=== PATIENT | female | born 1980 | race Caucasian/White ===

== ENCOUNTER 2016-10-08 12:37 | Emergency (ER) | payer MEDICAID ==
[2016-10-08 13:08] VITALS: BP 114/64
--- NOTE | 2016-10-10 10:33 | ER ---
Date of Service: 10/08/2016 REASON FOR VISIT: Lower abdominal pain and rectal bleeding. HISTORY: This 36-year-old white female presents to the emergency room ambulatory after having noticed some lower abdominal pain starting this afternoon along with 1 episode of bright red blood per rectum. It was noted with her bowel movement, which was kind of soft. This was a single episode. She denies any rectal pain. Denied any melena. Her abdominal pain is suprapubic in location. There is some pain with urination. She has had no fever or chills. Has not been dizzy or lightheaded, She has had a recent umbilical hernia repair. HOME MEDICATIONS: Trazodone at bedtime. ALLERGIES: Zithromax and bee pollen. OBJECTIVE: General: She is alert. She is afebrile. Vital Signs: Pulse is 79, blood pressure is 114/64, respirations are 16, oxygen sats 98%. Heart: Regular rate and rhythm. Lungs: Clear to auscultation. Back: No costovertebral angle tenderness. Abdomen: Soft. There is tenderness in the suprapubic area. There is no rebound. There are no masses, no guarding, no hepatosplenomegaly noted. Rectal: The patient declined a digital rectal exam and declined an anoscope. Risks of declining this with a history of rectal bleeding were noted. LABORATORY DATA: White count 5.3, hemoglobin 13.3. Urinalysis showed specific gravity greater than 1.030, positive protein, 5 to 10 rbc's, 5 and 10 wbc's, and bacteria. ASSESSMENT: 1. Rectal bleeding, by history. Unable to complete assessment, as the patient declined that evaluation. 2. Urinary tract infection. PLAN: 1. Septra DS b.i.d. for 5 days. 2. Plain fluids. 3. Follow up with her primary provider for assessment of the rectal bleeding. Return to the emergency room for any further rectal bleeding. I advised that she will probably need anoscopy and a colonoscopy for further assessment of her rectal bleeding. FM: 10/08/2016 14:12:58 MODL: 10/08/2016 14:36:38 /[id number]
== END 2016-10-08 14:15 | disposition home or self-care (01) ==
LOC: VM.ED 12:37
DX: K62.5 Hemorrhage of anus and rectum (principal); N39.0 Urinary tract infection, site not specified; Z88.8 Allergy status to other drugs, medicaments and biological substances
CPT/HCPCS: 36415; 81001; 85025; 99284

== ENCOUNTER 2016-10-16 19:04 | Emergency (ER) | payer MEDICAID ==
--- NOTE | 2016-10-16 21:01 | EDM.PDOC ---
ED HPI Trauma - General Chief Complaint: Lower Extremity Injury/Pain Stated Complaint: LEFT ANKLE Time Seen by Provider: 10/16/16 19:08 Source: Reports: Patient, Family, RN, RN notes reviewed History Limitations: Reports: No limitations - History of Present Illness INITIAL COMMENTS - FREE TEXT/NARRATIVE: Patient presents to the ED at [facility] concerned about LLE swelling on the lower anterior left combs. She denies any injury or trauma. Patient states the swelling is spontaneous. No other symptoms. Patient is merely concerned about why she has this isolated area of swelling on the left lower leg. Symptom Onset Date: 10/16/16 Occurred When: this morning Allergies/ADRs: Allergies azithromycin [From Zithromax] Allergy (Verified 10/16/16 20:21) Nausea bee pollen Allergy (Verified 10/16/16 20:21) Airway Tightness Home Medications: Ambulatory Orders traZODone 100 mg PO BEDTIME 10/08/16 [Confirmed 10/16/16] Past Medical History Respiratory History: Reports: Asthma - Past Surgical History HEENT Surgical History: Reports: Tonsillectomy GI Surgical History: Reports: Hernia, abdominal Female Surgical History: Reports: section Musculoskeletal Surgical History: Reports: Other (see below) Other Musculoskeletal Surgeries/Procedures:: Spinal fusion Social & Family History - Family History Family Medical History: Noncontributory - Tobacco Use Smoking Status *Q: Current Every Day Smoker Years of Tobacco use: 10 Packs/Tins Daily: 0.5 Used Tobacco, but Quit: Yes Month Tobacco Last Used: November Second Hand Smoke Exposure: No - Alcohol Use Days Per Week of Alcohol Use: 0 - Recreational Drug Use Recreational Drug Use: No Review of Systems - Review of Systems Review Of Systems: See Below Constitutional: Denies: chills, fever, weakness Respiratory: Denies: shortness of breath, cough Cardiovascular: Denies: chest pain, palpitations Musculoskeletal: Reports: leg pain (and swelling of the anterior lower left combs ) Skin: Reports: bruising (anterior left lower combs) Neurological: Reports: no symptoms. Denies: dizziness, headache, numbness, paresthesia, tingling Trauma Exam - Physical Exam Exam: See Below Exam Limited By: No limitations General Appearance: Reports: alert, no apparent distress Head: Reports: atraumatic, normocephalic Respiratory Exam: Reports: no respiratory distress, lungs clear, normal breath sounds Cardiovascular: Reports: normal peripheral pulses, regular rate, rhythm, no edema Extremities: Reports: no evidence of injury, tenderness (isolated area of swelling, anterior left lower combs; small area of bruising; no evidence of infection; skin intact; tender to deep palpation) Neurologic: Reports: alert, oriented x 3 Skin: Reports: Warm/dry, Ecchymosis - [place] Coma Score Best Eye Response ([place]): (4) open spontaneously Best Verbal Response ([place]): (5) oriented Best Motor Response ([place]): (6) obeys commands [place] Total: 15 Course - Orders/Labs/Meds Orders: Active Orders 24 hr Category Date Time Status Lower Extremity wo Cont Lt [CT] Stat Exams 10/16/16 20:19 Taken CBC WITH AUTO DIFF [HEME] Stat Lab 10/16/16 20:47 Received INR,PT,PROTHROMBIN TIME [COAG] Stat Lab 10/16/16 20:47 Received PTT,PARTIAL THROMBOPLSTIN TIME [COAG] Stat Lab 10/16/16 20:47 Received Departure - Departure Time of Disposition: 21:02 Disposition: Home, Self-Care 01 Condition: good Clinical Impression: Swelling of lower limb Instructions: Edema Referrals: PCP,None [Primary Care Provider] - Forms: ED Department Discharge Additional Instructions: 1. Stay well hydrated and rest 2. Elevate your leg to help control the swelling 3. Use JOE wrap to keep the swelling down 4. Recommend finding a primary care provider to help with your medical needs 5. Will call with test results when they are available - Problem List Review Problem List Initiated/Reviewed/Updated: Yes - My Orders Last 24 Hours: My Active Orders 10/16/16 20:19 Lower Extremity wo Cont Lt [CT] Stat 10/16/16 20:47 CBC WITH AUTO DIFF [HEME] Stat INR,PT,PROTHROMBIN TIME [COAG] Stat PTT,PARTIAL THROMBOPLSTIN TIME [COAG] Stat - Assessment/Plan Last 24 Hours: My Active Orders 10/16/16 20:19 Lower Extremity wo Cont Lt [CT] Stat 10/16/16 20:47 CBC WITH AUTO DIFF [HEME] Stat INR,PT,PROTHROMBIN TIME [COAG] Stat PTT,PARTIAL THROMBOPLSTIN TIME [COAG] Stat
[2016-10-16 21:24] VITALS: BP 110/61
== END 2016-10-16 21:15 | disposition home or self-care (01) ==
LOC: VM.ED 19:04
DX: M79.89 Other specified soft tissue disorders (principal); J45.909 Unspecified asthma, uncomplicated; F17.210 Nicotine dependence, cigarettes, uncomplicated; Z88.1 Allergy status to other antibiotic agents; Z91.030 Bee allergy status; Z98.890 Other specified postprocedural states; Z98.1 Arthrodesis status
CPT/HCPCS: 36415; 73700; 85025; 85610; 85730; 99284

== ENCOUNTER 2017-02-05 14:32 | Emergency (ER) | payer MEDICAID ==
[2017-02-05] MEDS ORDERED: Take Home: Albuterol 6.7 GM Inhaler, 1 Inhaler Pack INH ONE (15:13)
--- NOTE | 2017-02-05 15:13 | EDM.PDOC ---
ED HPI GENERAL MEDICAL PROBLEM - General Chief Complaint: Respiratory Problem Stated Complaint: COLD/HEADACHE Time Seen by Provider: 02/05/17 15:05 Source of Information: Reports: Patient, Old Records History Limitations: Reports: No Limitations - History of Present Illness INITIAL COMMENTS - FREE TEXT/NARRATIVE: Patient has had headache and nasal congestion for two days. Greenish nasal discharge and frontal headache. No fever or chills. Has history of asthma but has no albuterol inhaler. Has a lot of PND and coughing last few days. Has been on amoxicillin for a few days for dental infection. Onset: Gradual Onset Date: 02/03/17 Onset Time: 08:00 Duration: Day(s):, Getting Worse Location: Reports: Head, Face, Chest Severity: Moderate Improves with: Reports: None Worsens with: Reports: None Associated Symptoms: Reports: No Other Symptoms Treatments SERVER PROGRAMMER: Reports: Other (see below) (none) - Related Data Allergies Allergy/AdvReac Type Severity Reaction Status Date / Time azithromycin [From Zithromax] Allergy Nausea Verified 10/16/16 20:21 bee pollen Allergy Airway Verified 10/16/16 20:21 Tightness Home Meds: Home Meds traZODone 100 mg PO BEDTIME 10/08/16 [History] Past Medical History Respiratory History: Reports: Asthma - Past Surgical History GI Surgical History: Reports: Hernia, Abdominal Female Surgical History: Reports: Section Musculoskeletal Surgical History: Reports: Other (See Below) Social & Family History - Family History Family Medical History: Noncontributory - Tobacco Use Smoking Status *Q: Current Every Day Smoker Years of Tobacco use: 10 Packs/Tins Daily: 0.5 Used Tobacco, but Quit: Yes Month Tobacco Last Used: November Second Hand Smoke Exposure: No - Alcohol Use Days Per Week of Alcohol Use: 0 - Recreational Drug Use Recreational Drug Use: No ED ROS GENERAL - Review of Systems Review Of Systems: See Below Constitutional: Reports: No Symptoms. Denies: Fever, Chills HEENT: Reports: Eye Pain, Nose Pain, Sinus Problem, Throat Pain. Denies: Ear Discharge, Ear Pain, Vision Change Respiratory: Reports: Wheezing, Cough. Denies: Shortness of Breath, Sputum Cardiovascular: Reports: No Symptoms. Denies: Chest Pain, Dyspnea on Exertion Endocrine: Reports: No Symptoms GI/Abdominal: Reports: No Symptoms. Denies: Abdominal Pain, Anorexia, Nausea, Vomiting : Reports: No Symptoms Musculoskeletal: Reports: No Symptoms Skin: Reports: No Symptoms Neurological: Reports: No Symptoms Psychiatric: Reports: No Symptoms Hematologic/Lymphatic: Reports: No Symptoms Immunologic: Reports: No Symptoms ED EXAM, GENERAL - Physical Exam Exam: See Below Exam Limited By: No Limitations General Appearance: Alert, WD/WN, No Apparent Distress Eye Exam: Bilateral Eye: EOMI, PERRL Ears: Normal External Exam, Normal Canal, Hearing Grossly Normal, Normal TMs Nose: Nasal Swelling, Clear Rhinorrhea, Other (reddened boggy nasal mucosa) Throat/Mouth: Normal Inspection, Normal Lips, Normal Voice, No Airway Compromise , Other (posterior oropharynx erythematous) Head: Atraumatic, Normocephalic, Sinus Tenderness. No: Facial Swelling, Facial Tenderness Neck: Normal Inspection, Supple, Non-Tender, Full Range of Motion. No: Lymphadenopathy (L), Lymphadenopathy (R) Respiratory/Chest: Lungs Clear, Decreased Breath Sounds, Prolonged Expiration. No: No Respiratory Distress, No Accessory Muscle Use, Chest Non-Tender, Crackles , Rales, Rhonchi, Wheezing Cardiovascular: Normal Peripheral Pulses, Regular Rate, Rhythm, No Edema, No JVD , No Murmur, No Rub GI/Abdominal: Normal Bowel Sounds, Soft, Non-Tender (Female) Exam: Deferred Rectal (Female) Exam: Deferred Back Exam: Normal Inspection, Full Range of Motion Extremities: Normal Inspection, Normal Range of Motion Neurological: Alert, Oriented, CN II-XII Intact, Normal Cognition Psychiatric: Normal Affect, Normal Mood Skin Exam: Warm, Dry, Intact, Normal Color Lymphatic: No Adenopathy Course - Orders/Labs/Meds Meds: Medications Discontinued Medications Generic Name Dose Route Start Last Admin Trade Name Freq PRN Reason Stop Dose Admin Albuterol 1 packet 02/05/17 15:13 Take Home: Albuterol 6.7 Gm, 1 Inh Pack INH 02/05/17 15:14 ONETIME ONE - Re-Assessments/Exams Free Text/Narrative Re-Assessment/Exam: 02/05/17 15:31 Patient evaluated and diagnosed with sinusitis and bronchitis. She has history of RAD so will give an albuterol inhaler to use as directed. She is advised this is likely viral in origin. She is advised on symptomatic treatment and advised to find a PCP. She is to get rechecked if symptoms worsen or fail to improve. She is to stay on the amoxicillin she is already on for dental infection. Patient verbalized understanding of discharge instructions. Departure - Departure Time of Disposition: 15:34 Disposition: Home, Self-Care 01 Condition: Good Clinical Impression: Sinusitis, acute, Acute bronchitis - Discharge Information Instructions: Upper Respiratory Infection, Adult, [id number] Forms: ED Department Discharge Additional Instructions: Complete the amoxicillin antibiotic you are already on. Use the inhaler of albuterol 2 puffs every 4 hours as needed for cough, wheeze or shortness of breath. Follow up with your primary care provider if symptoms worsen or fail to improve. Get some over the counter Robitussin cough syrup or mucinex and use as directed for cough.
[2017-02-05 17:30] VITALS: BP 104/63
== END 2017-02-05 15:30 | disposition home or self-care (01) ==
LOC: VM.ED 14:32
DX: J01.90 Acute sinusitis, unspecified (principal); J20.9 Acute bronchitis, unspecified; J45.909 Unspecified asthma, uncomplicated; F17.210 Nicotine dependence, cigarettes, uncomplicated; Z88.1 Allergy status to other antibiotic agents; Z91.018 Allergy to other foods; Z98.890 Other specified postprocedural states
CPT/HCPCS: 99283; A9270

== ENCOUNTER 2017-03-14 20:12 | Emergency (ER) | payer MEDICAID ==
[2017-03-14] MEDS ORDERED: diphenhydrAMINE 25 MG Cap PO ONE (20:21)
[2017-03-14 20:51] VITALS: BP 115/59
--- NOTE | 2017-03-15 08:31 | ER ---
Date of Service: 03/14/2017 SUBJECTIVE: Lora presents to the emergency room with complaints of an insect bite. The patient states that she is highly allergic to bee stings and sustained a bee sting to the right lateral aspect of her ankle. She states this happened approximately 15 minutes before coming to the emergency room. The patient states that she does not have an EpiPen and is requesting oral Benadryl, stating that she does not want any IV started and refuses any injections. PAST MEDICAL HISTORY: 1. Tobacco abuse. 2. Asthma. 3. History of ventral hernia. 4. History of methamphetamine use with recent incarceration for this. MEDICATIONS: None. ALLERGIES: To azithromycin and bee pollen. REVIEW OF SYSTEMS: General: No fever or chills. HEENT: No sore throat, rhinorrhea, or congestion. Denies any throat tightness. Respiratory: No shortness of breath. Cardiac: Denies any substernal chest pain. No jaw, arm, neck, or back pain. GI: No nausea, vomiting, or diarrhea. No melena, hematochezia, or hematemesis. PHYSICAL EXAMINATION: General: This is a 36-year-old female patient, in no acute distress. Vital Signs: Blood pressure is 115/59, temperature is 36.8, respiratory rate is 18, O2 saturations 95%. Skin: Warm, pink, and dry. HEENT: Mouth, oral mucosa is moist. Lungs: Clear to auscultation. Musculoskeletal: No obvious area of erythema or evidence of bee sting to the patient's ankle. No urticaria or other outward signs of insect bites noted. Remainder of her physical examination is within normal limits. EMERGENCY ROOM COURSE: The patient was given 50 mg of Benadryl p.o. She remained stable in my care in the emergency room. ASSESSMENT: Possible bee sting. PLAN: The patient will be discharged. Return to the emergency room if she develops any shortness of breath, throat tightness, or other worrisome signs or symptoms. She was given a prescription for an epinephrine autoinjector since she states that she does have a history of severe allergy to bee stings. All questions were answered. ABHAYK: 03/15/2017 06:57:23 MODL: 03/15/2017 08:27:14 /[id number]
== END 2017-03-14 20:41 | disposition home or self-care (01) ==
LOC: VM.ED 20:12
DX: Z03.89 Encounter for observation for other suspected diseases and conditions ruled out (principal); J45.909 Unspecified asthma, uncomplicated
CPT/HCPCS: 99283; A9270

== ENCOUNTER 2021-02-12 10:26 | Emergency (ER) | payer MEDICAID ==
[2021-02-12] MEDS ORDERED: hydrOXYzine HCl 25 MG Tab PO ONE (10:34)
--- NOTE | 2021-02-12 10:37 | EDM.PDOC ---
ED HPI GENERAL MEDICAL PROBLEM - General Stated Complaint: ER Time Seen by Provider: 02/12/21 10:29 Source of Information: Reports: Patient, EMS - History of Present Illness INITIAL COMMENTS - FREE TEXT/NARRATIVE: Lora is a 40 y/o female who is brought to the ER by EMS for panic/anxiety type symptoms. She recently moved here to [place] from [place] and was walking to the Police Station to register as a sex offender since she had moved. She has a history of Panic/Anxiety and she has previously been on Prozac and also had prn Hydroxyzine. She has not needed the prn med in a long time and could not locate her prescription with the recent move and when she was at the station she got very anxious and started crying and complaining of chest discomfort. Staff at the police station called 911 and she was brought here. Back Pain Score (Numeric/FACES): 3 - Related Data Allergies Allergy/AdvReac Type Severity Reaction Status Date / Time azithromycin [From Zithromax] Allergy Nausea Verified 02/12/21 11:00 bee pollen Allergy Airway Verified 02/12/21 11:00 Tightness Home Meds: Home Meds hydrOXYzine HCL [Atarax] 25 mg PO QID PRN #30 tab 02/12/21 [Rx] Past Medical History Respiratory History: Reports: Asthma Psychiatric History: Reports: Depression, Other (See Below) Other Psychiatric History: cutting - Past Surgical History HEENT Surgical History: Reports: Tonsillectomy GI Surgical History: Reports: Hernia, Abdominal Female Surgical History: Reports: Section Social & Family History - Family History Family Medical History: No Pertinent Family History - Caffeine Use Caffeine Use: Reports: None Review of Systems - Review of Systems Review Of Systems: See Below Constitutional: Reports: No Symptoms Eyes: Reports: No Symptoms Ears: Reports: No Symptoms Nose: Reports: No Symptoms Mouth/Throat: Reports: No Symptoms Respiratory: Reports: No Symptoms Cardiovascular: Reports: No Symptoms GI/Abdominal: Reports: No Symptoms Genitourinary: Reports: No Symptoms Musculoskeletal: Reports: No Symptoms Skin: Reports: No Symptoms Neurological: Reports: No Symptoms Psychiatric: Reports: Anxiety ED EXAM, GENERAL - Physical Exam Exam: See Below Exam Limited By: No Limitations General Appearance: Alert, WD/WN, No Apparent Distress (female adult, slightly anxious and crying but cooperative) Eye Exam: Bilateral Eye: PERRL Ears: Hearing Grossly Normal Nose: Normal Inspection, Normal Mucosa Throat/Mouth: Normal Inspection, Normal Lips, Normal Voice Head: Atraumatic, Normocephalic Neck: Normal Inspection, Supple, Non-Tender Respiratory/Chest: No Respiratory Distress, Lungs Clear, Chest Non-Tender Cardiovascular: Normal Peripheral Pulses, Regular Rate, Rhythm, No Murmur GI/Abdominal: Normal Bowel Sounds, Soft (Female) Exam: Deferred Rectal (Female) Exam: Deferred Back Exam: Normal Inspection Extremities: Normal Inspection, Normal Range of Motion, Normal Capillary Refill Neurological: Alert, Oriented, CN II-XII Intact Psychiatric: Anxious, Tearful Skin Exam: Warm, Dry, Intact, Normal Color Course - Vital Signs Text/Narrative:: 1029 The patient was seen by the HISTOLOGY SPECIALIST. She was given Hydroxyzine 25mg po x 1. 1125 Anxiety better and she was more relaxed. Will give her an Rx for prn hydroxyzine until she can establish care with a local PCP. She was given discharge instructions and left the ER in stable condition. Last Recorded V/S: Last Vital Signs Temp 36.6 C 02/12/21 10:40 Pulse 77 02/12/21 10:40 Resp 16 02/12/21 10:40 BP 102/42 L 02/12/21 10:40 Pulse Ox 99 02/12/21 10:40 - Orders/Labs/Meds Meds: Medications Discontinued Medications Generic Name Dose Route Start Last Admin Trade Name Freq PRN Reason Stop Dose Admin Hydroxyzine HCl 25 mg 02/12/21 10:34 02/12/21 10:44 Hydroxyzine Hcl 25 Mg Tab PO 02/12/21 10:35 25 mg ONETIME ONE Administration Departure - Departure Time of Disposition: 11:27 Disposition: Home, Self-Care 01 Condition: Good Clinical Impression: Anxiety attack - Discharge Information *PRESCRIPTION DRUG MONITORING PROGRAM REVIEWED*: Not Applicable *COPY OF PRESCRIPTION DRUG MONITORING REPORT IN PATIENT LAURA: Not Applicable Prescriptions: hydrOXYzine HCL [Atarax] 25 mg PO QID PRN #30 tab PRN Reason: Anxiety Instructions: Panic Attack, [id number], Managing Anxiety, Adult Additional Instructions: -Hydroxyzine 25mg oral every 6 hours as needed #30(Rx) -Follow up with your Primary Provider for further concerns and additional med refills -Return to the ER as needed Sepsis Event Note (ED) - Focused Exam Vital Signs: Vital Signs Temp Pulse Resp BP Pulse Ox 02/12/21 10:40 36.6 C 77 16 102/42 L 99 - Assessment/Plan Assessment:: 1)Anxiety Attack Plan: -As above
[2021-02-12 11:08] VITALS: BP 102/42; PULSE 77
== END 2021-02-12 11:35 | disposition home or self-care (01) ==
LOC: VM.ED 10:26
DX: F41.9 Anxiety disorder, unspecified (principal); J45.909 Unspecified asthma, uncomplicated; Z88.1 Allergy status to other antibiotic agents; Z91.030 Bee allergy status
CPT/HCPCS: 99283; A9270

== ENCOUNTER 2021-05-16 19:11 | Emergency (ER) | payer MEDICAID ==
--- NOTE | 2021-05-16 19:43 | EDM.PDOC ---
ED HPI GENERAL MEDICAL PROBLEM - General Chief Complaint: Skin Complaint Stated Complaint: rash Time Seen by Provider: 05/16/21 19:12 Source of Information: Reports: Patient History Limitations: Reports: No Limitations - History of Present Illness INITIAL COMMENTS - FREE TEXT/NARRATIVE: Emergency department with complaints of a rash on her right rib area. She states that this rash began approximately 30 minutes prior to arrival to the emergency department. She is unsure if it is of hives or other type of rash. She showed her mother and her mother advised to come to the emergency department to have it checked out. Patient states it is itching sensation however it is not spreading. Patient states that her apartment is not the cleanest at times. And states that there sometimes are spiders in her apartment. She is not aware of any bedbugs or fleas in her apartment. Onset: Sudden Location: Reports: Abdomen Quality: Reports: Other Severity: Mild Improves with: Reports: None Worsens with: Reports: None Context: Reports: Other Associated Symptoms: Reports: No Other Symptoms - Related Data Allergies Allergy/AdvReac Type Severity Reaction Status Date / Time azithromycin [From Zithromax] Allergy Nausea Verified 02/12/21 11:00 bee pollen Allergy Airway Verified 02/12/21 11:00 Tightness Home Meds: Home Meds hydrOXYzine HCL [Atarax] 25 mg PO QID PRN #30 tab 02/12/21 [Rx] Past Medical History Respiratory History: Reports: Asthma Psychiatric History: Reports: Anxiety, Depression, Panic Attack, Other (See Below) Other Psychiatric History: cutting - Past Surgical History HEENT Surgical History: Reports: Tonsillectomy Other HEENT Surgeries/Procedures: teeth extraction GI Surgical History: Reports: Hernia, Abdominal Female Surgical History: Reports: Section Musculoskeletal Surgical History: Reports: Other (See Below) Other Musculoskeletal Surgeries/Procedures:: corrective spine surgery Social & Family History - Family History Family Medical History: No Pertinent Family History - Caffeine Use Caffeine Use: Reports: None ED ROS GENERAL - Review of Systems Review Of Systems: Comprehensive ROS is negative, except as noted in HPI. Constitutional: Reports: No Symptoms HEENT: Reports: No Symptoms Respiratory: Reports: No Symptoms Cardiovascular: Reports: No Symptoms Endocrine: Reports: No Symptoms GI/Abdominal: Reports: No Symptoms : Reports: No Symptoms Musculoskeletal: Reports: No Symptoms Neurological: Reports: No Symptoms Psychiatric: Reports: No Symptoms Hematologic/Lymphatic: Reports: No Symptoms Immunologic: Reports: No Symptoms ED EXAM, GENERAL - Physical Exam Exam: See Below Exam Limited By: No Limitations General Appearance: Alert, WD/WN, No Apparent Distress Head: Atraumatic, Normocephalic Neck: Normal Inspection, Supple, Non-Tender, Full Range of Motion Respiratory/Chest: No Respiratory Distress, Lungs Clear, Normal Breath Sounds, Chest Non-Tender Cardiovascular: Normal Peripheral Pulses, Regular Rate, Rhythm, No Edema GI/Abdominal: Normal Bowel Sounds, Soft, Non-Tender Back Exam: Normal Inspection, Full Range of Motion Extremities: Normal Inspection, Normal Range of Motion, Normal Capillary Refill Neurological: Alert, Oriented, Normal Gait Psychiatric: Normal Affect, Normal Mood Skin Exam: Rash (right upper abd- spider bite appearance. with mild redness around the site. non weaping ) Departure - Departure Time of Disposition: 19:40 Disposition: Home, Self-Care 01 Condition: Good Clinical Impression: Spider bite Qualifiers: Encounter type: initial encounter Injury intent: accidental or unintentional Qualified Code(s): T63.301A - Toxic effect of unspecified spider venom, accidental (unintentional), initial encounter - Discharge Information *PRESCRIPTION DRUG MONITORING PROGRAM REVIEWED*: Not Applicable *COPY OF PRESCRIPTION DRUG MONITORING REPORT IN PATIENT LAURA: Not Applicable Instructions: Spider Bite Referrals: PCP,None [Primary Care Provider] - Forms: ED Department Discharge Additional Instructions: 1. Rest 2. Keep the area clean and dry 3. Can use tylenol and ibuprofen as needed for pain and discomfort 4. Diet as tolerated 5. Activity as tolerated 6. Can put a bandaid over the area as needed to help with irritation 7. Can use ice 3-4 times a day at 20-minute intervals to help with any swelling and discomfort 8. Follow-up with your primary care provider symptoms continue or to progress 9. Discharge information has been provided regarding your injury and wound care has been provided 10. Avoid an public pools or hot tubes until wound is healed. - Assessment/Plan Assessment:: 1. spider bite Plan: 1. Bacitracin cream and bandaid applied to the area 2. Patient and nursing staff was updated regarding the plan of care 3. Education provided the patient regarding activity, diet, rest, [id number] medication modalities, and follow-up care was provided 4. Patient and family are agreeable to the above plan of care 5. All questions and concerns were addressed with the patient and family prior to discharge
== END 2021-05-16 19:55 | disposition home or self-care (01) ==
LOC: VM.ED 19:11
DX: T63.301A Toxic effect of unspecified spider venom, accidental (unintentional), initial encounter (principal); Z88.1 Allergy status to other antibiotic agents; Z91.030 Bee allergy status
CPT/HCPCS: 99282; 99283

== ENCOUNTER 2021-06-26 21:12 | Emergency (ER) | payer MEDICAID ==
[2021-06-26] MEDS ORDERED: Take Home: Amoxicillin/Clavulanate K 875-125 MG Tab, 2 Tab Pack PO ONE (22:01)
[2021-06-26] MEDS ORDERED: Benzonatate 100 MG Cap ONE (22:26)
[2021-06-26] MEDS: Benzonatate 100 MG Cap PO SCH ×2 (22:27→22:28)
--- NOTE | 2021-06-27 00:45 | EDM.PDOC ---
ED HPI GENERAL MEDICAL PROBLEM - General Chief Complaint: ENT Problem Stated Complaint: EAR PAIN Time Seen by Provider: 06/26/21 21:45 Source of Information: Reports: Patient History Limitations: Reports: No Limitations - History of Present Illness INITIAL COMMENTS - FREE TEXT/NARRATIVE: Pt. presents to ER with complaints of pain to the antihelix. She states that the symptoms started today. She noticed some redness and a small area of swelling to the area. Denies any history of MRSA or other resistive bacteria colonization on her person. Pt. also complains of cough, sinus congestion, sore throat for the past 3 days. Denies any fever. No chest pain or shortness of breath. Onset Date: 06/27/21 Right Ear Pain Score (Numeric/FACES): 9 - Related Data Allergies Allergy/AdvReac Type Severity Reaction Status Date / Time azithromycin [From Zithromax] Allergy Nausea Verified 02/12/21 11:00 bee pollen Allergy Airway Verified 02/12/21 11:00 Tightness Home Meds: Home Meds hydrOXYzine HCL [Atarax] 25 mg PO QID PRN #30 tab 02/12/21 [Rx] Past Medical History Respiratory History: Reports: Asthma Psychiatric History: Reports: Anxiety, Depression, Panic Attack, Other (See Below) Other Psychiatric History: cutting - Past Surgical History HEENT Surgical History: Reports: Tonsillectomy Other HEENT Surgeries/Procedures: teeth extraction GI Surgical History: Reports: Hernia, Abdominal Female Surgical History: Reports: Section Musculoskeletal Surgical History: Reports: Other (See Below) Other Musculoskeletal Surgeries/Procedures:: corrective spine surgery Social & Family History - Family History Family Medical History: No Pertinent Family History - Tobacco Use Tobacco Use Status *Q: Current Every Day Tobacco User Years of Tobacco use: 10 Packs/Tins Daily: 0.2 - Caffeine Use Caffeine Use: Reports: None - Recreational Drug Use Recreational Drug Use: No ED ROS GENERAL - Review of Systems Review Of Systems: See Below Constitutional: Reports: No Symptoms HEENT: Reports: Ear Pain, Rhinitis, Sinus Problem, Throat Pain, Throat Swelling Respiratory: Reports: No Symptoms Cardiovascular: Reports: No Symptoms Endocrine: Reports: No Symptoms GI/Abdominal: Reports: No Symptoms : Reports: No Symptoms Musculoskeletal: Reports: No Symptoms Skin: Reports: No Symptoms Neurological: Reports: No Symptoms Psychiatric: Reports: No Symptoms Hematologic/Lymphatic: Reports: No Symptoms Immunologic: Reports: No Symptoms ED EXAM, GENERAL - Physical Exam Exam: See Below Exam Limited By: No Limitations General Appearance: Alert, WD/WN, No Apparent Distress Eye Exam: Bilateral Eye: EOMI Ears: Other (small area of erythema with very small abscess/pustule to antehelix of L ear. TMs are clear.) Nose: Normal Inspection, Normal Mucosa, No Blood Throat/Mouth: Normal Inspection, Normal Lips, Normal Teeth, Normal Gums, Normal Oropharynx, Normal Voice, No Airway Compromise Head: Atraumatic, Normocephalic Neck: Normal Inspection, Supple, Non-Tender, Full Range of Motion Respiratory/Chest: No Respiratory Distress, Lungs Clear, Normal Breath Sounds, No Accessory Muscle Use, Chest Non-Tender Cardiovascular: Normal Peripheral Pulses, Regular Rate, Rhythm, No JVD Course - Vital Signs Last Recorded V/S: Last Vital Signs Temp 36.6 C 06/26/21 21:45 Pulse Resp BP Pulse Ox - Orders/Labs/Meds Meds: Medications Discontinued Medications Generic Name Dose Route Start Last Admin Trade Name Lulu PRN Reason Stop Dose Admin Amoxicillin/Clavulanate Potassium 2 packet 06/26/21 22:01 06/26/21 22:21 Take Home: Amoxicillin/Clavulanate K 875-125 Mg Tab, 2 Tab Pack PO 06/26/21 22:02 2 packet ONETIME ONE Administration Benzonatate 100 mg 06/27/21 08:00 06/26/21 22:28 Benzonatate 100 Mg Cap PO 100 mg TID MANSI Administration Benzonatate Confirm 06/26/21 22:26 Benzonatate 100 Mg Cap Administered 06/26/21 22:27 Dose 300 mg .ROUTE .STK-MED ONE Departure - Departure Time of Disposition: 23:00 Disposition: Home, Self-Care 01 Clinical Impression: Cellulitis, Viral illness - Discharge Information Instructions: Amoxicillin; Clavulanic Acid Tablets, Cellulitis, Adult, Viral Illness, Adult, Benzonatate capsules, Probiotics Referrals: PCP,None [Primary Care Provider] - Forms: ED Department Discharge Additional Instructions: Augmentin 875mg 1 twice daily for 10 days Tessalon 100mg 1 three times daily for cough Recheck in clinic in 7-10 days, sooner if not gradually improving. Sepsis Event Note (ED) - Evaluation Sepsis Screening Result: No Definite Risk - Focused Exam Vital Signs: Vital Signs Temp 06/26/21 21:45 36.6 C - Problem List Review Problem List Initiated/Reviewed/Updated: Yes - Assessment/Plan Plan: Augmentin 875mg 1 twice daily for 10 days Tessalon 100mg 1 three times daily for cough Recheck in clinic in 7-10 days, sooner if not gradually improving.
== END 2021-06-26 22:33 | disposition home or self-care (01) ==
LOC: VM.ED 21:12
DX: H60.12 Cellulitis of left external ear (principal); B34.9 Viral infection, unspecified; H60.02 Abscess of left external ear; Z91.030 Bee allergy status; Z88.1 Allergy status to other antibiotic agents; Z72.0 Tobacco use
CPT/HCPCS: 99282; A9270-GY

== ENCOUNTER 2021-09-22 01:05 | Emergency (ER) | payer MEDICAID ==
[2021-09-22 01:49] VITALS: BP 117/67; PULSE 82
== END 2021-09-22 01:30 | disposition home or self-care (01) ==
LOC: VM.ED 01:05
DX: F41.9 Anxiety disorder, unspecified (principal); Z88.1 Allergy status to other antibiotic agents; Z91.030 Bee allergy status
CPT/HCPCS: 99283

== ENCOUNTER 2021-11-04 15:12 | Emergency (ER) | payer MEDICAID ==
[2021-11-04 15:24] VITALS: BP 115/65; PULSE 88
[2021-11-04 16:19] LABS: CHLORIDE,CL 107 mmol/L (98-107); SODIUM,NA 140 mmol/L (136-145)
[2021-11-04 16:21] LABS: ANION GAP 12.8 mmol/L (5-15)
[2021-11-04] MEDS ORDERED: Ciprofloxacin 500 MG Tab PO ONE (17:21)
== END 2021-11-04 17:27 | disposition home or self-care (01) ==
LOC: VM.ED 15:12
DX: N39.0 Urinary tract infection, site not specified (principal); R31.9 Hematuria, unspecified; Z88.1 Allergy status to other antibiotic agents; Z91.030 Bee allergy status; Z72.0 Tobacco use
CPT/HCPCS: 36415; 74176; 80053; 81001; 85025; 99283; 99284-25; A9270-GY

== ENCOUNTER 2021-12-28 03:46 | Emergency (ER) | payer MEDICAID ==
[2021-12-28] MEDS ORDERED: Ketorolac 10 MG Tab PO ONE (03:54)
[2021-12-28] MEDS ORDERED: SUMAtriptan 50 MG Tab PO ONE (03:54)
[2021-12-28 04:26] VITALS: BP 103/63; PULSE 89
== END 2021-12-28 04:20 | disposition home or self-care (01) ==
LOC: VM.ED 03:46
DX: G43.909 Migraine, unspecified, not intractable, without status migrainosus (principal); Z79.899 Other long term (current) drug therapy; Z88.1 Allergy status to other antibiotic agents; Z91.030 Bee allergy status
CPT/HCPCS: 99283; 99284; A9270-GY

== ENCOUNTER 2022-03-04 02:17 | Emergency (ER) | payer MEDICAID ==
[2022-03-04] MEDS: Take Home: Naproxen 500 MG Tab, 4 Tab Pack PO ONE (02:37)
[2022-03-04 04:15] VITALS: BP 122/49; PULSE 85
== END 2022-03-04 02:42 | disposition home or self-care (01) ==
LOC: VM.ED 02:17
DX: M54.50 Low back pain, unspecified (principal); Z88.1 Allergy status to other antibiotic agents; Z91.030 Bee allergy status; Z79.899 Other long term (current) drug therapy
CPT/HCPCS: 99283; A9270-GY

== ENCOUNTER 2022-06-12 16:26 | Emergency (ER) | payer MEDICAID ==
[2022-06-12 17:00] VITALS: BP 106/44; PULSE 81
[2022-06-12] MEDS ORDERED: Take Home: Amoxicillin/Clavulanate K 875-125 MG Tab, 2 Tab Pack PO ONE (17:00)
== END 2022-06-12 17:15 | disposition home or self-care (01) ==
LOC: VM.ED 16:26
DX: H66.93 Otitis media, unspecified, bilateral (principal); F17.210 Nicotine dependence, cigarettes, uncomplicated; Z88.1 Allergy status to other antibiotic agents; Z91.030 Bee allergy status; Z79.899 Other long term (current) drug therapy
CPT/HCPCS: 99282; A9270

== ENCOUNTER 2022-06-19 17:37 | Emergency (ER) | payer MEDICAID ==
[2022-06-19 18:17] LABS: ANION GAP 13.8 mmol/L (5-15)
[2022-06-19 18:42] VITALS: BP 112/65; PULSE 64
== END 2022-06-19 18:44 | disposition home or self-care (01) ==
LOC: VM.ED 17:37
DX: R55 Syncope and collapse (principal); J45.909 Unspecified asthma, uncomplicated; Z72.0 Tobacco use; Z88.1 Allergy status to other antibiotic agents; Z91.030 Bee allergy status
CPT/HCPCS: 36415; 80053; 84484; 85025; 93005; 99284

== ENCOUNTER 2022-06-29 02:08 | Emergency (ER) | payer MEDICAID ==
[2022-06-29 02:35] VITALS: BP 114/53; PULSE 82
== END 2022-06-29 02:27 | disposition home or self-care (01) ==
LOC: VM.ED 02:14
DX: B34.9 Viral infection, unspecified (principal); J45.909 Unspecified asthma, uncomplicated; Z88.1 Allergy status to other antibiotic agents; Z91.030 Bee allergy status
CPT/HCPCS: 99283

== ENCOUNTER 2022-07-16 20:15 | Emergency (ER) | payer MEDICAID ==
[2022-07-16 20:32] VITALS: BP 104/52; PULSE 68
[2022-07-16] MEDS ORDERED: Take Home: Ketorolac 10 MG Tab, 4 Tab Pack PO ONE (20:36)
[2022-07-16] MEDS ORDERED: Take Home: Cyclobenzaprine 10 MG Tab, 4 Tab Pack PO ONE (20:36)
== END 2022-07-16 21:00 | disposition home or self-care (01) ==
LOC: VM.ED 20:15
DX: M54.2 Cervicalgia (principal); M62.838 Other muscle spasm; F17.210 Nicotine dependence, cigarettes, uncomplicated; Z88.1 Allergy status to other antibiotic agents; Z91.030 Bee allergy status
CPT/HCPCS: 99283; A9270-GY

== ENCOUNTER 2022-09-16 22:44 | Emergency (ER) | payer MEDICAID ==
[2022-09-16 23:02] VITALS: BP 111/56; PULSE 70
[2022-09-16 23:47] LABS: ANION GAP 13.5 mmol/L (5-15)
[2022-09-17] MEDS ORDERED: Take Home: Sulfamethoxazole/Trimethoprim 800-160 MG Tab, 6 Tab Pack PO ONE
[2022-09-17] MEDS ORDERED: Take Home: metroNIDAZOLE 500 MG Tab, 6 Tab Pack PO ONE
== END 2022-09-17 00:25 | disposition home or self-care (01) ==
LOC: VM.ED 22:44
DX: N39.0 Urinary tract infection, site not specified (principal); B37.31 Acute candidiasis of vulva and vagina; Z88.1 Allergy status to other antibiotic agents; Z91.030 Bee allergy status
CPT/HCPCS: 36415; 80053; 81001; 81025; 85025; 86140; 87086; 99284; A9270

== ENCOUNTER 2022-12-05 01:20 | Emergency (ER) | payer MEDICAID ==
[2022-12-05] MEDS ORDERED: Ketorolac 30 MG/ML SDV IM ONE (01:42)
[2022-12-05 01:44] VITALS: BP 110/75; PULSE 72
[2022-12-05] MEDS ORDERED: Take Home: Naproxen 500 MG Tab, 4 Tab Pack PO ONE (01:46)
== END 2022-12-05 01:59 | disposition home or self-care (01) ==
LOC: VM.ED 01:20
DX: M75.42 Impingement syndrome of left shoulder (principal); J45.909 Unspecified asthma, uncomplicated; Z88.1 Allergy status to other antibiotic agents; Z91.030 Bee allergy status
CPT/HCPCS: 99283; A9270-GY

== ENCOUNTER 2022-12-12 00:15 | Emergency (ER) | payer MEDICAID ==
[2022-12-12 00:53] LABS: BASOPHILS PERCENT AUTO 0.2 % (0.2-1.2); EOSINOPHILS ABSOLUTE AUTO 0.1 x10^3/uL (0.0-0.5); EOSINOPHILS PERCENT AUTO 1.5 % (0.0-4.0); HEMATOCRIT 35.4 % (33.0-47.0); HEMOGLOBIN 12.1 g/dL (12.0-16.0); LYMPHOCYTES ABSOLUTE AUTO 2.5 x10^3/uL (1.0-4.8); LYMPHOCYTES PERCENT AUTO 48.1 % (25.0-50.0); MEAN CORPUSCULAR HEMOGLOBIN 29.4 pg (26.0-32.0); MEAN CORPUSCULAR HGB CONC 34.2 g/dL (32.0-36.0); MEAN CORPUSCULAR VOLUME 86.1 fL (78.0-93.0); MONOCYTES ABSOLUTE AUTO 0.5 x10^3/uL (0.0-0.8); MONOCYTES PERCENT AUTO 8.9 % (2.0-11.0); NEUTROPHILS ABSOLUTE AUTO 2.1 x10^3/uL (1.8-7.7); NEUTROPHILS PERCENT AUTO 41.3 % (50.0-80.0); PLATELET COUNT,PLT 255 x10^3/uL (130-400); RED BLOOD CELL COUNT 4.11 x10^6/uL (4.00-5.50); WHITE BLOOD CELL COUNT,WBC 5.2 x10^3/uL (4.0-10.0)
[2022-12-12 00:57] LABS: APPEARANCE,URINE CLOUDY (CLEAR); BACTERIA,URINE RARE /HPF (NOT SEEN); BILIRUBIN,URINE NEGATIVE (NEGATIVE); COLOR,URINE RED (YELLOW); GLUCOSE,URINE NEGATIVE (NEGATIVE); KETONES,URINE NEGATIVE (NEGATIVE); LEUKOCYTE ESTERASE,URINE NEGATIVE (NEGATIVE); NITRITE,URINE NEGATIVE (NEGATIVE); OCCULT BLOOD,URINE LARGE (NEGATIVE); PROTEIN,URINE 30 mg/dL (NEGATIVE); RBC,URINE SEMI-PACKED /HPF (NOT SEEN); UROBILINOGEN,URINE 0.2 EU/dL (0.2); WBC,URINE 0-5 /HPF (NOT SEEN)
[2022-12-12 00:58] LABS: SQUAMOUS EPITHELIAL CELLS,UR OCCASIONAL /HPF (NOT SEEN)
[2022-12-12 01:12] VITALS: BP 144/68; PULSE 73
== END 2022-12-12 01:10 | disposition home or self-care (01) ==
LOC: VM.ED 00:15
DX: N92.0 Excessive and frequent menstruation with regular cycle (principal); J45.909 Unspecified asthma, uncomplicated; Z88.1 Allergy status to other antibiotic agents; Z91.030 Bee allergy status
CPT/HCPCS: 36415; 81001; 85025; 99284

== ENCOUNTER 2022-12-13 15:58 | Emergency (ER) | payer MEDICAID ==
[2022-12-13] MEDS: hydrOXYzine HCl 25 MG Tab PO ONE (16:13)
[2022-12-13 16:17] VITALS: BP 141/74; PULSE 72
[2022-12-13 16:17] LABS: BASOPHILS PERCENT AUTO 0.2 % (0.2-1.2); EOSINOPHILS ABSOLUTE AUTO 0.1 x10^3/uL (0.0-0.5); EOSINOPHILS PERCENT AUTO 0.8 % (0.0-4.0); HEMATOCRIT 38.6 % (33.0-47.0); HEMOGLOBIN 13.2 g/dL (12.0-16.0); IMMATURE GRAN ABSOLUTE AUTO 0.02 x10^3/uL (0.00-0.07); LYMPHOCYTES ABSOLUTE AUTO 1.9 x10^3/uL (1.0-4.8); LYMPHOCYTES PERCENT AUTO 30.4 % (25.0-50.0); MEAN CORPUSCULAR HEMOGLOBIN 29.1 pg (26.0-32.0); MEAN CORPUSCULAR HGB CONC 34.2 g/dL (32.0-36.0); MONOCYTES ABSOLUTE AUTO 0.5 x10^3/uL (0.0-0.8); MONOCYTES PERCENT AUTO 7.5 % (2.0-11.0); NEUTROPHILS ABSOLUTE AUTO 3.7 x10^3/uL (1.8-7.7); NEUTROPHILS PERCENT AUTO 60.8 % (50.0-80.0); PLATELET COUNT,PLT 280 x10^3/uL (130-400); RED BLOOD CELL COUNT 4.54 x10^6/uL (4.00-5.50); WHITE BLOOD CELL COUNT,WBC 6.2 x10^3/uL (4.0-10.0)
[2022-12-13 16:36] LABS: A/G RATIO 0.97; ALANINE AMINOTRANSFERASE,ALT 22 U/L (14-59); ALBUMIN 3.8 g/dL (3.4-5.0); ALKALINE PHOSPHATASE 81 U/L (46-116); ASPARTATE AMNIOTRANSFERASE,AST 22 U/L (15-37); BILIRUBIN TOTAL 0.4 mg/dL (0.2-1.0); BLOOD UREA NITROGEN,BUN 11 mg/dL (7-18); CARBON DIOXIDE,CO2 27 mmol/L (21-32); CHLORIDE,CL 106 mmol/L (98-107); CREATININE 0.7 mg/dL (0.55-1.02); GLUCOSE RANDOM 81 mg/dL (70-99); POTASSIUM,K 3.6 mmol/L (3.5-5.1); PROTEIN TOTAL,TP 7.7 g/dL (6.4-8.2); SODIUM,NA 140 mmol/L (136-145)
[2022-12-13 16:37] LABS: ANION GAP 10.6 mmol/L (5-15); ESTIMATED GFR 112 mL/min (>=60)
== END 2022-12-13 16:53 | disposition home or self-care (01) ==
LOC: VM.ED 15:58
DX: F41.0 Panic disorder [episodic paroxysmal anxiety] (principal); J45.909 Unspecified asthma, uncomplicated; Z88.1 Allergy status to other antibiotic agents; Z91.030 Bee allergy status
CPT/HCPCS: 36415; 80053; 84484; 85025; 99284; A9270-GY

== ENCOUNTER 2023-01-15 22:46 | Emergency (ER) | payer MEDICAID ==
[2023-01-15] MEDS ORDERED: Take Home: Naproxen 500 MG Tab, 4 Tab Pack PO ONE (23:12)
[2023-01-16 00:43] VITALS: BP 99/51; PULSE 66
== END 2023-01-15 23:45 | disposition home or self-care (01) ==
LOC: VM.ED 22:46
DX: M75.42 Impingement syndrome of left shoulder (principal); J45.909 Unspecified asthma, uncomplicated; Z72.0 Tobacco use; Z91.030 Bee allergy status; Z88.1 Allergy status to other antibiotic agents; Z98.890 Other specified postprocedural states
CPT/HCPCS: 99283; A9270

== ENCOUNTER 2023-04-08 14:09 | Emergency (ER) | payer MEDICAID ==
[2023-04-08] MEDS ORDERED: Take Home: Naproxen 500 MG Tab, 4 Tab Pack PO ONE (14:34)
[2023-04-08 14:38] VITALS: BP 110/61; PULSE 82
== END 2023-04-08 14:45 | disposition home or self-care (01) ==
LOC: VM.ED 14:09 → SUPCPDRO 14:09 → VM.ED 14:45
DX: S66.911A Strain of unspecified muscle, fascia and tendon at wrist and hand level, right hand, initial encounter (principal); X50.3XXA Overexertion from repetitive movements, initial encounter; Y93.G9 Activity, other involving cooking and grilling; Y92.511 Restaurant or cafe as the place of occurrence of the external cause; Y99.0 Civilian activity done for income or pay
CPT/HCPCS: 99283; A9270

== ENCOUNTER 2023-04-27 23:32 | Emergency (ER) | payer MEDICAID ==
[2023-04-28 00:30] VITALS: BP 110/79; PULSE 66
== END 2023-04-28 00:04 | disposition home or self-care (01) ==
LOC: VM.ED 23:32
DX: S96.912A Strain of unspecified muscle and tendon at ankle and foot level, left foot, initial encounter (principal); J45.909 Unspecified asthma, uncomplicated; X50.1XXA Overexertion from prolonged static or awkward postures, initial encounter
CPT/HCPCS: 99283

== ENCOUNTER 2023-06-10 20:37 | Emergency (ER) | payer MEDICAID ==
[2023-06-10] MEDS: Take Home: Acetaminophen/Codeine 300 MG/30 MG, 5 Tab Pack PO ONE (21:11)
[2023-06-10] MEDS: Take Home: Cyclobenzaprine 10 MG Tab, 4 Tab Pack PO ONE (21:11)
[2023-06-10 22:04] VITALS: BP 101/59; PULSE 74
== END 2023-06-10 21:18 | disposition home or self-care (01) ==
LOC: VM.ED 20:37
DX: M54.50 Low back pain, unspecified (principal); J45.909 Unspecified asthma, uncomplicated; Z79.899 Other long term (current) drug therapy; Z88.1 Allergy status to other antibiotic agents; Z91.030 Bee allergy status
CPT/HCPCS: 99283; A9270-GY

== ENCOUNTER 2023-08-28 12:41 | Emergency (ER) | payer MEDICAID ==
[2023-08-28 12:56] VITALS: BP 109/64; PULSE 97
[2023-08-28] MEDS ORDERED: Orphenadrine 60 MG/2 ML Inj IM ONE (12:58)
[2023-08-28] MEDS ORDERED: Ketorolac 30 MG/ML SDV IM ONE (12:58)
== END 2023-08-28 13:53 | disposition home or self-care (01) ==
LOC: VM.ED 12:41
DX: M54.50 Low back pain, unspecified (principal); J45.909 Unspecified asthma, uncomplicated; Z79.899 Other long term (current) drug therapy; Z91.030 Bee allergy status; Z88.1 Allergy status to other antibiotic agents
CPT/HCPCS: 99283

== ENCOUNTER 2023-09-03 02:15 | Emergency (ER) | payer MEDICAID ==
[2023-09-03] MEDS: Acetaminophen 325 MG Tab PO ONE (02:35)
[2023-09-03] MEDS: Ketorolac 30 MG/ML SDV IVPUSH ONE (02:36)
[2023-09-03 03:04] LABS: CORONAVIRUS COVID-19 NAA NEGATIVE (NEGATIVE); INFLUENZA B NAA NEGATIVE (NEGATIVE); RESPIRATORY SYNCYTIAL VIR NAA NEGATIVE (NEGATIVE)
[2023-09-03 07:44] VITALS: BP 120/51; PULSE 116
[2023-09-05 16:15] LABS: INFLUENZA A NAA POSITIVE (NEGATIVE)
== END 2023-09-03 03:15 | disposition home or self-care (01) ==
LOC: VM.ED 02:15
DX: J10.1 Influenza due to other identified influenza virus with other respiratory manifestations (principal); J45.909 Unspecified asthma, uncomplicated; Z91.030 Bee allergy status; Z88.1 Allergy status to other antibiotic agents; Z79.899 Other long term (current) drug therapy
CPT/HCPCS: 0241U; 96374; 99283; 99284; A9270; J1885

== ENCOUNTER 2023-09-04 05:35 | Emergency (ER) | payer MEDICAID ==
[2023-09-04 06:15] VITALS: BP 108/65; PULSE 90
[2023-09-04 06:35] LABS: HEMATOCRIT 39.3 % (33.0-47.0); HEMOGLOBIN 13.3 g/dL (12.0-16.0); MEAN CORPUSCULAR HEMOGLOBIN 29.1 pg (26.0-32.0); MEAN CORPUSCULAR HGB CONC 33.8 g/dL (32.0-36.0); PLATELET COUNT,PLT 238 x10^3/uL (130-400); RED BLOOD CELL COUNT 4.57 x10^6/uL (4.00-5.50)
[2023-09-04 06:42] LABS: BAND PERCENT MAN 7 % (0-6); EOSINOPHILS ABSOLUTE MAN 0.1 x10^3/uL (0.0-0.5); EOSINOPHILS PERCENT MAN 2 % (0-4); LYMPHOCYTES PERCENT MAN 19 % (25-50); MONOCYTES ABSOLUTE MAN 0.2 x10^3/uL (0.0-0.8); MONOCYTES PERCENT MAN 4 % (2-11); NEUTROPHILS ABSOLUTE MAN 3.8 x10^3/uL (1.8-7.7); PLATELET COUNT ESTIMATE ADEQUATE; SEG NEUTROPHILS PERCENT MAN 68 % (50-80)
== END 2023-09-04 07:08 | disposition home or self-care (01) ==
LOC: VM.ED 05:35
DX: N93.8 Other specified abnormal uterine and vaginal bleeding (principal); Z91.030 Bee allergy status; Z88.1 Allergy status to other antibiotic agents; Z79.899 Other long term (current) drug therapy
CPT/HCPCS: 36415; 81025; 85007; 85027; 99284

== ENCOUNTER 2023-09-09 00:01 | Emergency (ER) | payer MEDICAID ==
[2023-09-09 00:10] VITALS: BP 129/74; PULSE 89
[2023-09-09] MEDS: Codeine/Promethazine 10-6.25 MG/5 ML Syrup 5 ML UD Cup PO SCH (00:33)
== END 2023-09-09 00:40 | disposition home or self-care (01) ==
LOC: VM.ED 00:01
DX: J11.1 Influenza due to unidentified influenza virus with other respiratory manifestations (principal); Z79.899 Other long term (current) drug therapy; Z91.030 Bee allergy status; Z88.1 Allergy status to other antibiotic agents
CPT/HCPCS: 99283; 99284; A9270-GY

== ENCOUNTER 2023-10-02 22:58 | Emergency (ER) | payer MEDICAID ==
[2023-10-02 23:58] LABS: APPEARANCE,URINE CLEAR (CLEAR); BILIRUBIN,URINE NEGATIVE (NEGATIVE); COLOR,URINE YELLOW (YELLOW); GLUCOSE,URINE NEGATIVE (NEGATIVE); KETONES,URINE NEGATIVE (NEGATIVE); LEUKOCYTE ESTERASE,URINE NEGATIVE (NEGATIVE); NITRITE,URINE NEGATIVE (NEGATIVE); OCCULT BLOOD,URINE MODERATE (NEGATIVE); PROTEIN,URINE NEGATIVE (NEGATIVE); UROBILINOGEN,URINE 0.2 EU/dL (0.2)
[2023-10-02 23:58] LABS: BASOPHILS PERCENT AUTO 0.2 % (0.2-1.2); EOSINOPHILS ABSOLUTE AUTO 0.2 x10^3/uL (0.0-0.5); EOSINOPHILS PERCENT AUTO 1.3 % (0.0-4.0); HEMATOCRIT 40.8 % (33.0-47.0); HEMOGLOBIN 13.6 g/dL (12.0-16.0); IMMATURE GRAN ABSOLUTE AUTO 0.05 x10^3/uL (0.00-0.07); LYMPHOCYTES ABSOLUTE AUTO 2.9 x10^3/uL (1.0-4.8); LYMPHOCYTES PERCENT AUTO 24.7 % (25.0-50.0); MEAN CORPUSCULAR HEMOGLOBIN 28.8 pg (26.0-32.0); MEAN CORPUSCULAR HGB CONC 33.3 g/dL (32.0-36.0); MEAN CORPUSCULAR VOLUME 86.4 fL (78.0-93.0); MONOCYTES ABSOLUTE AUTO 0.8 x10^3/uL (0.0-0.8); MONOCYTES PERCENT AUTO 6.9 % (2.0-11.0); NEUTROPHILS ABSOLUTE AUTO 7.9 x10^3/uL (1.8-7.7); NEUTROPHILS PERCENT AUTO 66.5 % (50.0-80.0); PLATELET COUNT,PLT 297 x10^3/uL (130-400); RED BLOOD CELL COUNT 4.72 x10^6/uL (4.00-5.50); WHITE BLOOD CELL COUNT,WBC 11.9 x10^3/uL (4.0-10.0)
[2023-10-03 00:08] LABS: BACTERIA,URINE FEW /HPF (NOT SEEN); MUCUS,URINE NOT SEEN /LPF (NOT SEEN); RBC,URINE 0-5 /HPF (NOT SEEN); SQUAMOUS EPITHELIAL CELLS,UR FEW /HPF (NOT SEEN); WBC,URINE 0-5 /HPF (NOT SEEN)
[2023-10-03 00:15] LABS: A/G RATIO 0.84; ALANINE AMINOTRANSFERASE,ALT 20 U/L (14-59); ALBUMIN 3.8 g/dL (3.4-5.0); ALKALINE PHOSPHATASE 110 U/L (46-116); ASPARTATE AMNIOTRANSFERASE,AST 23 U/L (15-37); BILIRUBIN TOTAL 0.3 mg/dL (0.2-1.0); BLOOD UREA NITROGEN,BUN 10 mg/dL (7-18); CALCIUM 9.8 mg/dL (8.5-10.1); CARBON DIOXIDE,CO2 31 mmol/L (21-32); CHLORIDE,CL 105 mmol/L (98-107); CREATININE 0.8 mg/dL (0.55-1.02); GLUCOSE RANDOM 83 mg/dL (70-99); POTASSIUM,K 3.8 mmol/L (3.5-5.1); PROTEIN TOTAL,TP 8.3 g/dL (6.4-8.2); SODIUM,NA 143 mmol/L (136-145)
[2023-10-03 00:16] LABS: ANION GAP 10.8 mmol/L (5-15); C-REACTIVE PROTEIN < 0.50 mg/dL (<=0.50); ESTIMATED GFR 95 mL/min (>=60)
[2023-10-03 00:47] VITALS: BP 123/67; PULSE 86
== END 2023-10-03 00:40 | disposition home or self-care (01) ==
LOC: VM.ED 22:58
DX: R10.30 Lower abdominal pain, unspecified (principal); Z91.030 Bee allergy status; Z88.1 Allergy status to other antibiotic agents; Z79.899 Other long term (current) drug therapy
CPT/HCPCS: 36415; 80053; 81001; 81025; 85025; 86140; 99284

== ENCOUNTER 2023-11-06 23:08 | Emergency (ER) | payer MEDICAID ==
[2023-11-06 23:18] VITALS: PULSE 98
[2023-11-06] MEDS: Take Home: Doxycycline 100 MG Cap, 4 Cap Pack PO ONE (23:24)
== END 2023-11-06 23:30 | disposition home or self-care (01) ==
LOC: VM.ED 23:08
DX: J44.9 Chronic obstructive pulmonary disease, unspecified (principal); F17.210 Nicotine dependence, cigarettes, uncomplicated; Z79.899 Other long term (current) drug therapy; Z91.030 Bee allergy status; Z88.1 Allergy status to other antibiotic agents
CPT/HCPCS: 99284; A9270

== ENCOUNTER 2024-01-14 15:34 | Emergency (ER) | payer MEDICAID ==
[2024-01-14 16:45] VITALS: BP 110/67; PULSE 73
[2024-01-14] MEDS: Take Home: Amoxicillin/Clavulanate K 875-125 MG Tab, 2 Tab Pack PO ONE (17:04)
== END 2024-01-14 17:08 | disposition home or self-care (01) ==
LOC: VM.ED 15:34
DX: J01.90 Acute sinusitis, unspecified (principal); Z91.030 Bee allergy status; Z88.1 Allergy status to other antibiotic agents; Z79.899 Other long term (current) drug therapy
CPT/HCPCS: 99283; A9270

== ENCOUNTER 2024-01-16 01:20 | Emergency (ER) | payer MEDICAID ==
[2024-01-16 02:07] VITALS: BP 100/62; PULSE 94
[2024-01-16] MEDS: Ketorolac 30 MG/ML SDV IM ONE (02:22)
[2024-01-16] MEDS: Benzonatate 100 MG Cap PO ONE (02:22)
== END 2024-01-16 02:35 | disposition home or self-care (01) ==
LOC: VM.ED 01:20
DX: J40 Bronchitis, not specified as acute or chronic (principal); Z91.030 Bee allergy status; Z88.1 Allergy status to other antibiotic agents; Z79.899 Other long term (current) drug therapy
CPT/HCPCS: 96372; 99283; A9270; J1885

== ENCOUNTER 2024-01-21 22:50 | Emergency (ER) | payer OTHER, MEDICAID ==
[2024-01-22 00:43] VITALS: BP 102/65; PULSE 89
== END 2024-01-22 | disposition home or self-care (01) ==
LOC: VM.ED 22:50
DX: S80.812A Abrasion, left lower leg, initial encounter (principal); M25.572 Pain in left ankle and joints of left foot; X50.1XXA Overexertion from prolonged static or awkward postures, initial encounter; Y93.01 Activity, walking, marching and hiking
CPT/HCPCS: 73610-LT; 99283

== ENCOUNTER 2024-01-28 02:40 | Emergency (ER) | payer MEDICAID ==
[2024-01-28 03:28] VITALS: PULSE 89
[2024-01-28 03:46] VITALS: BP 120/76
== END 2024-01-28 03:57 | disposition home or self-care (01) ==
LOC: VM.ED 02:40
DX: F41.0 Panic disorder [episodic paroxysmal anxiety] (principal); Z77.098 Contact with and (suspected) exposure to other hazardous, chiefly nonmedicinal, chemicals; F17.200 Nicotine dependence, unspecified, uncomplicated; Z91.030 Bee allergy status; Z88.1 Allergy status to other antibiotic agents; Z79.899 Other long term (current) drug therapy
CPT/HCPCS: 99284

== ENCOUNTER 2024-05-12 03:30 | Emergency (ER) | payer MEDICAID ==
[2024-05-12] MEDS: Pseudoephedrine 30 MG Tab PO ONE (03:45)
[2024-05-12 03:53] VITALS: BP 120/78; PULSE 90
== END 2024-05-12 03:50 | disposition home or self-care (01) ==
LOC: VM.ED 03:30
DX: H69.93 Unspecified Eustachian tube disorder, bilateral (principal); Z79.899 Other long term (current) drug therapy; Z88.1 Allergy status to other antibiotic agents; Z91.048 Other nonmedicinal substance allergy status
CPT/HCPCS: 99282; 99283; A9270-GY

== ENCOUNTER 2024-05-23 19:43 | Emergency (ER) | payer MEDICAID ==
[2024-05-23 20:44] VITALS: BP 120/76; PULSE 92
[2024-05-23] MEDS: Codeine/guaiFENesin 10-100 MG/5 ML Syrup 5 ML Cup PO ONE (20:49)
== END 2024-05-23 20:55 | disposition home or self-care (01) ==
LOC: VM.ED 19:43
DX: R05.9 Cough, unspecified (principal); J45.909 Unspecified asthma, uncomplicated; F17.210 Nicotine dependence, cigarettes, uncomplicated; Z91.030 Bee allergy status; Z88.1 Allergy status to other antibiotic agents
CPT/HCPCS: 99283; A9270-GY

== ENCOUNTER 2024-05-26 20:48 | Emergency (ER) | payer MEDICAID ==
[2024-05-26] MEDS: Benzonatate 100 MG Cap PO STA (21:05)
[2024-05-26] MEDS: predniSONE 20 MG Tab PO ONE (21:05)
[2024-05-27 00:17] VITALS: BP 127/78; PULSE 85
== END 2024-05-26 21:13 | disposition home or self-care (01) ==
LOC: VM.ED 20:48
DX: J06.9 Acute upper respiratory infection, unspecified (principal); B97.89 Other viral agents as the cause of diseases classified elsewhere; J45.909 Unspecified asthma, uncomplicated; Z79.899 Other long term (current) drug therapy; Z91.030 Bee allergy status; Z88.1 Allergy status to other antibiotic agents
CPT/HCPCS: 99283; A9270-GY; J7512

== ENCOUNTER 2024-05-29 19:32 | Emergency (ER) | payer MEDICAID ==
[2024-05-29 23:17] VITALS: BP 122/70; PULSE 73
== END 2024-05-29 20:30 | disposition home or self-care (01) ==
LOC: VM.ED 19:32
DX: J06.9 Acute upper respiratory infection, unspecified (principal); B97.89 Other viral agents as the cause of diseases classified elsewhere; J45.909 Unspecified asthma, uncomplicated; Z90.89 Acquired absence of other organs; Z91.030 Bee allergy status; Z88.1 Allergy status to other antibiotic agents; Z79.52 Long term (current) use of systemic steroids; Z79.899 Other long term (current) drug therapy
CPT/HCPCS: 99283

== ENCOUNTER 2024-07-16 21:08 | Emergency (ER) | payer MEDICAID ==
[2024-07-17 01:11] VITALS: BP 115/65; PULSE 80
== END 2024-07-16 21:55 | disposition home or self-care (01) ==
LOC: VM.ED 21:08
DX: L30.9 Dermatitis, unspecified (principal); R09.81 Nasal congestion; J45.909 Unspecified asthma, uncomplicated; Z79.899 Other long term (current) drug therapy; Z91.030 Bee allergy status; Z88.1 Allergy status to other antibiotic agents
CPT/HCPCS: 99283

== ENCOUNTER 2024-08-20 07:49 | Emergency (ER) | payer MEDICAID ==
[2024-08-20] MEDS ORDERED: Sodium Chloride 0.9% 10 ML Syringe FLUSH PRN (07:58)
[2024-08-20 08:08] LABS: BASOPHILS PERCENT AUTO 0.1 % (0.2-1.2); EOSINOPHILS ABSOLUTE AUTO 0.1 x10^3/uL (0.0-0.5); EOSINOPHILS PERCENT AUTO 0.7 % (0.0-4.0); HEMATOCRIT 40.3 % (33.0-47.0); HEMOGLOBIN 13.6 g/dL (12.0-16.0); IMMATURE GRAN ABSOLUTE AUTO 0.03 x10^3/uL (0.00-0.07); LYMPHOCYTES ABSOLUTE AUTO 1.6 x10^3/uL (1.0-4.8); LYMPHOCYTES PERCENT AUTO 9.9 % (25.0-50.0); MEAN CORPUSCULAR HEMOGLOBIN 27.7 pg (26.0-32.0); MEAN CORPUSCULAR HGB CONC 33.7 g/dL (32.0-36.0); MEAN CORPUSCULAR VOLUME 82.1 fL (78.0-93.0); MONOCYTES ABSOLUTE AUTO 0.9 x10^3/uL (0.0-0.8); MONOCYTES PERCENT AUTO 5.3 % (2.0-11.0); NEUTROPHILS ABSOLUTE AUTO 13.5 x10^3/uL (1.8-7.7); NEUTROPHILS PERCENT AUTO 83.8 % (50.0-80.0); PLATELET COUNT,PLT 409 x10^3/uL (130-400); RED BLOOD CELL COUNT 4.91 x10^6/uL (4.00-5.50)
[2024-08-20 08:25] LABS: A/G RATIO 0.75; ALANINE AMINOTRANSFERASE,ALT 28 U/L (14-59); ALBUMIN 3.8 g/dL (3.4-5.0); ALKALINE PHOSPHATASE 132 U/L (46-116); ASPARTATE AMNIOTRANSFERASE,AST 26 U/L (15-37); BILIRUBIN TOTAL 0.5 mg/dL (0.2-1.0); BLOOD UREA NITROGEN,BUN 7 mg/dL (7-18); CALCIUM 9.8 mg/dL (8.5-10.1); CARBON DIOXIDE,CO2 24 mmol/L (21-32); CHLORIDE,CL 105 mmol/L (98-107); CREATININE 0.9 mg/dL (0.55-1.02); GLUCOSE RANDOM 101 mg/dL (70-99); POTASSIUM,K 3.4 mmol/L (3.5-5.1); PROTEIN TOTAL,TP 8.9 g/dL (6.4-8.2); SODIUM,NA 141 mmol/L (136-145)
[2024-08-20 08:27] LABS: ANION GAP 15.4 mmol/L (5-15); ESTIMATED GFR 82 mL/min (>=60)
[2024-08-20 08:27] LABS: BILIRUBIN,URINE SMALL (NEGATIVE); COLOR,URINE YELLOW (YELLOW); GLUCOSE,URINE NEGATIVE (NEGATIVE); KETONES,URINE 15 mg/dL (NEGATIVE); LEUKOCYTE ESTERASE,URINE NEGATIVE (NEGATIVE); NITRITE,URINE NEGATIVE (NEGATIVE); OCCULT BLOOD,URINE SMALL (NEGATIVE); PH,URINE 5.5 (5.0-8.0); PROTEIN,URINE TRACE mg/dL (NEGATIVE); UROBILINOGEN,URINE 0.2 EU/dL (0.2)
[2024-08-20 08:28] LABS: APPEARANCE,URINE SLIGHTLY CLOUDY (CLEAR)
[2024-08-20 08:38] LABS: BACTERIA,URINE OCCASIONAL /HPF (NOT SEEN); MUCUS,URINE OCCASIONAL /LPF (NOT SEEN); SQUAMOUS EPITHELIAL CELLS,UR FEW /HPF (NOT SEEN); WBC,URINE 0-5 /HPF (NOT SEEN)
[2024-08-20 09:02] VITALS: BP 111/66; PULSE 62
[2024-08-20] MEDS: LORazepam 2 MG/ML SDV IVPUSH PRN (10:17)
[2024-08-20] MEDS: Lactated Ringers 1,000 ML IV SCH (10:19)
[2024-08-20] MEDS: Iopamidol 612 MG/ML 100 ML Bottle IVPUSH ONE (10:43)
== END 2024-08-20 12:09 | disposition home or self-care (01) ==
LOC: VM.ED 07:49
DX: R10.31 Right lower quadrant pain (principal); R19.7 Diarrhea, unspecified; J45.909 Unspecified asthma, uncomplicated; Z90.89 Acquired absence of other organs; Z88.1 Allergy status to other antibiotic agents; Z91.030 Bee allergy status; Z79.899 Other long term (current) drug therapy
CPT/HCPCS: 74176; 74177; 80053; 81001; 81025; 85025; 96361; 96374; 99284; 99285-25; J2060; J7120; Q9967

== ENCOUNTER 2024-10-29 00:50 | Emergency (ER) | payer MEDICAID ==
[2024-10-29] MEDS: Take Home: Albuterol 18 GM Inhaler, 1 Inhaler Pack INH PRN (01:58)
[2024-10-29] MEDS: predniSONE 20 MG Tab PO ONE (01:59)
[2024-10-29] MEDS: Doxycycline Monohydrate 100 MG Cap PO ONE (01:59)
[2024-10-29] MEDS: Benzonatate 100 MG Cap PO STA (01:59)
[2024-10-29 03:52] VITALS: BP 113/49; PULSE 73
== END 2024-10-29 02:05 | disposition home or self-care (01) ==
LOC: VM.ED 00:50 → SUPCPDRO 00:50 → VM.ED 02:05
DX: J20.9 Acute bronchitis, unspecified (principal); Z79.899 Other long term (current) drug therapy; Z91.030 Bee allergy status; Z88.1 Allergy status to other antibiotic agents
CPT/HCPCS: 99284; A9270-GY; J7512

== ENCOUNTER 2024-12-16 21:32 | Emergency (ER) | payer MEDICAID ==
[2024-12-16] MEDS ORDERED: Sodium Chloride 0.9% 10 ML Syringe FLUSH PRN (21:39)
[2024-12-16] MEDS: Lactated Ringers 1,000 ML IV ONE (22:00)
[2024-12-16 22:03] LABS: BASOPHILS PERCENT AUTO 0.2 % (0.2-1.2); EOSINOPHILS ABSOLUTE AUTO 0.1 x10^3/uL (0.0-0.5); EOSINOPHILS PERCENT AUTO 0.8 % (0.0-4.0); HEMOGLOBIN 12.2 g/dL (12.0-16.0); IMMATURE GRAN ABSOLUTE AUTO 0.02 x10^3/uL (0.00-0.07); LYMPHOCYTES ABSOLUTE AUTO 2.8 x10^3/uL (1.0-4.8); LYMPHOCYTES PERCENT AUTO 23.8 % (25.0-50.0); MEAN CORPUSCULAR HEMOGLOBIN 26.5 pg (26.0-32.0); MEAN CORPUSCULAR HGB CONC 33.9 g/dL (32.0-36.0); MEAN CORPUSCULAR VOLUME 78.3 fL (78.0-93.0); MONOCYTES ABSOLUTE AUTO 0.9 x10^3/uL (0.0-0.8); MONOCYTES PERCENT AUTO 7.9 % (2.0-11.0); NEUTROPHILS ABSOLUTE AUTO 7.9 x10^3/uL (1.8-7.7); NEUTROPHILS PERCENT AUTO 67.1 % (50.0-80.0); PLATELET COUNT,PLT 336 x10^3/uL (130-400); WHITE BLOOD CELL COUNT,WBC 11.7 x10^3/uL (4.0-10.0)
[2024-12-16 22:18] LABS: APPEARANCE,URINE SLIGHTLY CLOUDY (CLEAR); BILIRUBIN,URINE NEGATIVE (NEGATIVE); COLOR,URINE YELLOW (YELLOW); GLUCOSE,URINE NEGATIVE (NEGATIVE); KETONES,URINE TRACE mg/dL (NEGATIVE); LEUKOCYTE ESTERASE,URINE TRACE (NEGATIVE); NITRITE,URINE NEGATIVE (NEGATIVE); OCCULT BLOOD,URINE TRACE-LYSED (NEGATIVE); PROTEIN,URINE NEGATIVE (NEGATIVE)
[2024-12-16 22:25] LABS: A/G RATIO 0.83; ALANINE AMINOTRANSFERASE,ALT 15 U/L (14-59); ALBUMIN 3.5 g/dL (3.4-5.0); ALKALINE PHOSPHATASE 106 U/L (46-116); ASPARTATE AMNIOTRANSFERASE,AST 16 U/L (15-37); BILIRUBIN TOTAL 0.5 mg/dL (0.2-1.0); BLOOD UREA NITROGEN,BUN 12 mg/dL (7-18); CALCIUM 8.6 mg/dL (8.5-10.1); CARBON DIOXIDE,CO2 25 mmol/L (21-32); CHLORIDE,CL 104 mmol/L (98-107); CREATINE KINASE,CK 72 U/L (26-192); CREATININE 0.7 mg/dL (0.55-1.02); GLUCOSE RANDOM 96 mg/dL (70-99); PROTEIN TOTAL,TP 7.7 g/dL (6.4-8.2); SODIUM,NA 141 mmol/L (136-145)
[2024-12-16 22:27] LABS: ANION GAP 14.9 mmol/L (5-15); ESTIMATED GFR 111 mL/min (>=60); POTASSIUM,K 2.9 mmol/L (3.5-5.1)
[2024-12-16 22:29] LABS: BACTERIA,URINE FEW /HPF (NOT SEEN); RBC,URINE 0-5 /HPF (NOT SEEN); SQUAMOUS EPITHELIAL CELLS,UR MANY /HPF (NOT SEEN); WBC,URINE 0-5 /HPF (NOT SEEN)
[2024-12-16 22:30] LABS: MUCUS,URINE FEW /LPF (NOT SEEN)
[2024-12-16] MEDS: Acetaminophen 500 MG Tab PO ONE (22:44)
[2024-12-16] MEDS: Potassium Bicarbonate 25 MEQ Tab.EFF PO ONE (22:45)
[2024-12-17 02:46] VITALS: BP 106/62; PULSE 74
== END 2024-12-16 23:00 | disposition home or self-care (01) ==
LOC: VM.ED 21:32
DX: E86.0 Dehydration (principal); R55 Syncope and collapse; E87.6 Hypokalemia; Z91.013 Allergy to seafood; Z79.899 Other long term (current) drug therapy
CPT/HCPCS: 36415; 70450; 80053; 81001; 82550; 85025; 87086; 99285; A9270; 99284

== ENCOUNTER 2025-01-30 19:13 | Emergency (ER) | payer MEDICAID ==
[2025-01-30 19:37] VITALS: BP 118/65; PULSE 82
== END 2025-01-30 19:45 | disposition home or self-care (01) ==
LOC: VM.ED 19:13
DX: J34.89 Other specified disorders of nose and nasal sinuses (principal); Z91.030 Bee allergy status; Z88.1 Allergy status to other antibiotic agents
CPT/HCPCS: 99283

== ENCOUNTER 2025-04-11 21:20 | Emergency (ER) | payer MEDICAID ==
[2025-04-11 23:52] VITALS: BP 114/60; PULSE 81
== END 2025-04-11 23:17 | disposition home or self-care (01) ==
LOC: VM.ED 21:20
DX: M79.18 Myalgia, other site (principal); J45.909 Unspecified asthma, uncomplicated; Z88.8 Allergy status to other drugs, medicaments and biological substances
CPT/HCPCS: 99283; 99284

== ENCOUNTER 2025-04-25 03:05 | Emergency (ER) | payer MEDICAID ==
[2025-04-25 03:26] VITALS: BP 112/54; PULSE 80
[2025-04-25] MEDS: Ketorolac 30 MG/ML SDV IM ONE (03:36)
== END 2025-04-25 03:43 | disposition home or self-care (01) ==
LOC: VM.ED 03:05
DX: H83.2X2 Labyrinthine dysfunction, left ear (principal); J45.909 Unspecified asthma, uncomplicated; F17.200 Nicotine dependence, unspecified, uncomplicated; Z88.8 Allergy status to other drugs, medicaments and biological substances; Z91.030 Bee allergy status
CPT/HCPCS: 96372; 99282; 99283; A9270-GY; J1885

== ENCOUNTER 2025-05-10 16:59 | Emergency (ER) | payer MEDICAID ==
[2025-05-10 17:56] VITALS: BP 126/53; PULSE 82
== END 2025-05-10 17:43 | disposition home or self-care (01) ==
LOC: VM.ED 16:59
DX: J34.89 Other specified disorders of nose and nasal sinuses (principal); F17.210 Nicotine dependence, cigarettes, uncomplicated; Z91.030 Bee allergy status; Z88.1 Allergy status to other antibiotic agents
CPT/HCPCS: 99283; A9270-GY

== ENCOUNTER 2025-05-18 21:31 | Emergency (ER) | payer MEDICAID ==
[2025-05-18 21:50] VITALS: BP 116/59; PULSE 95
== END 2025-05-18 21:55 | disposition home or self-care (01) ==
LOC: VM.ED 21:31
DX: H92.02 Otalgia, left ear (principal); Z88.1 Allergy status to other antibiotic agents; Z91.09 Other allergy status, other than to drugs and biological substances
CPT/HCPCS: 99282

== ENCOUNTER 2025-05-23 10:41 | Emergency (ER) | payer MEDICAID ==
[2025-05-23 11:03] VITALS: BP 135/76; PULSE 88
[2025-05-23 11:27] LABS: BASOPHILS ABSOLUTE AUTO 0.0 x10^3/uL (0.0-0.2); BASOPHILS PERCENT AUTO 0.1 % (0.2-1.2); EOSINOPHILS ABSOLUTE AUTO 0.1 x10^3/uL (0.0-0.5); EOSINOPHILS PERCENT AUTO 0.6 % (0.0-4.0); IMMATURE GRAN ABSOLUTE AUTO 0.02 x10^3/uL (0.00-0.07); IMMATURE GRAN PERCENT AUTO 0.20 % (0.00-0.43); LYMPHOCYTES ABSOLUTE AUTO 2.6 x10^3/uL (1.0-4.8); LYMPHOCYTES PERCENT AUTO 23.5 % (25.0-50.0); MONOCYTES ABSOLUTE AUTO 0.9 x10^3/uL (0.0-0.8); MONOCYTES PERCENT AUTO 8.1 % (2.0-11.0); NEUTROPHILS ABSOLUTE AUTO 7.4 x10^3/uL (1.8-7.7); NEUTROPHILS PERCENT AUTO 67.5 % (50.0-80.0); PLATELET COUNT,PLT 318 x10^3/uL (130-400); RED BLOOD CELL COUNT 4.67 x10^6/uL (4.00-5.50); WHITE BLOOD CELL COUNT,WBC 10.9 x10^3/uL (4.0-10.0)
[2025-05-23 11:29] LABS: GLUCOSE,URINE NEGATIVE (NEGATIVE); OCCULT BLOOD,URINE TRACE-INTACT (NEGATIVE)
[2025-05-23 11:37] LABS: APPEARANCE,URINE SLIGHTLY CLOUDY (CLEAR)
[2025-05-23 11:38] LABS: AMPHETAMINES SCREEN, URINE NEGATIVE (NEGATIVE); SQUAMOUS EPITHELIAL CELLS,UR FEW /HPF (NOT SEEN)
[2025-05-23 11:39] LABS: BUPRENORPHINE SCREEN,URINE NEGATIVE (NEGATIVE); COCAINE METABOLITES,URINE NEGATIVE (NEGATIVE); METHADONE SCREEN, URINE NEGATIVE (NEGATIVE); METHAMPHETAMINE SCREEN, URINE NEGATIVE (NEGATIVE); OXYCODONE SCREEN,URINE NEGATIVE (NEGATIVE); PCP SCREEN,URINE NEGATIVE (NEGATIVE); THC SCREEN,URINE 50 NG/ML NEGATIVE (NEGATIVE)
[2025-05-23 12:03] LABS: A/G RATIO 0.80; ALANINE AMINOTRANSFERASE,ALT 15 U/L (14-59); ASPARTATE AMNIOTRANSFERASE,AST 16 U/L (15-37); BILIRUBIN TOTAL 0.4 mg/dL (0.2-1.0); BLOOD UREA NITROGEN,BUN 9 mg/dL (7-18); CARBON DIOXIDE,CO2 29 mmol/L (21-32); CHLORIDE,CL 103 mmol/L (98-107); CREATININE 0.6 mg/dL (0.55-1.02); EST CRCL DRUG DOSING (CG) 87.73 mL/min; GLUCOSE RANDOM 85 mg/dL (70-99); POTASSIUM,K 3.0 mmol/L (3.5-5.1); PROTEIN TOTAL,TP 8.1 g/dL (6.4-8.2); SODIUM,NA 141 mmol/L (136-145); TSH ULTRASENSITIVE 3.889 uIU/mL (0.358-3.74)
[2025-05-23 12:05] LABS: ESTIMATED GFR 115 mL/min (>=60)
[2025-05-23 12:06] LABS: ETHANOL BLOOD MEDICAL < 3 mg/dL (0-3)
== END 2025-05-23 12:40 | disposition home or self-care (01) ==
LOC: VM.ED 10:41
DX: R45.851 Suicidal ideations (principal); R94.6 Abnormal results of thyroid function studies; R79.89 Other specified abnormal findings of blood chemistry; F17.200 Nicotine dependence, unspecified, uncomplicated; Z88.1 Allergy status to other antibiotic agents; Z91.030 Bee allergy status
CPT/HCPCS: 36415; 80053; 80143; 80179; 80305-QW; 80307; 81001; 81025; 83735; 84443; 85025; 99284